=== PATIENT | male | born 1930 | race American Indian/Alaskan Native ===

== ENCOUNTER 2016-06-26 19:16 | Inpatient (IN) | payer OTHER, MEDICAID ==
[~2016-06-26] VITALS: Ht 167.6 cm; Wt 74.8 kg
[2016-06-26 19:25] VITALS: BP 83/48
[2016-06-26] MEDS ORDERED: NACL 0.9% 1,000 ML IV SCH (19:27)
[2016-06-26 19:49] LABS: HEMATOCRIT 39.6 % (36-52); HEMOGLOBIN 12.6 g/dL (12.0-18.0); MEAN CORPUSCULAR HEMOGLOBIN 28 pg (27-31); MEAN CORPUSCULAR HGB CONC 32 g/dL (33-37); MEAN CORPUSCULAR VOLUME 88 fL (80-94); PLATELET COUNT (AUTO) 248 K/uL (140-450); RED BLOOD CELL COUNT(AUTO) 4.49 MIL/uL (4.20-6.10); RED CELL DISTRIBUTION WIDTH 16.1 % (11.6-13.7); WHITE BLOOD COUNT (AUTO) 15.7 K/uL (4.8-10.8)
[2016-06-26 20:01] LABS: ALANINE AMINOTRANSFERASE 75 U/L (12-78); ALBUMIN 2.5 g/dL (3.4-5.0); ALKALINE PHOSPHATASE 85 U/L (46-116); ASPARTATE AMINOTRANSFERASE 103 U/L (15-37); CALCIUM 8.1 mg/dL (8.5-10.1); CARBON DIOXIDE 24.6 mmol/L (21-32); CHLORIDE 100 mmol/L (98-107); CREATININE 1.5 mg/dL (0.6-1.3); GLUCOSE 111 mg/dL (74-106); POTASSIUM 4.6 mmol/L (3.5-5.1); SODIUM SERUM 138 mmol/L (136-145); TOTAL BILIRUBIN 0.4 mg/dL (0.0-1.0); TOTAL PROTEIN, SERUM 6.8 g/dL (6.4-8.2); UREA NITROGEN, BLOOD 38 mg/dL (7-18)
[2016-06-26 20:09] LABS: INR 1.1 (0.8-1.2); PARTIAL THROMBOPLASTIN TIME 27.1 secs (22-35.6); PROTHROMBIN TIME 10.4 secs (10.8-13.4)
[2016-06-26 20:12] LABS: BAND % (MANUAL) 42 % (0-8); LYMPHOCYTES % (MANUAL) 2 % (20-46); MONOCYTES % (MANUAL) 10 % (5-12); NEUTROPHILS % (MANUAL) 45 (43-65); PLATELET ESTIMATE ADEQUATE
[2016-06-26] MEDS ORDERED: AZITHROMYCIN 500 MG in DEXTROSE 5% 250 ML IV ONE (20:20)
[2016-06-26] MEDS ORDERED: cefTRIAXone 1,000 MG VIAL ONE ×2 (20:35→20:38)
[2016-06-26] MEDS ORDERED: AZITHROMYCIN 500 MG INJ VIAL IV ONE (20:39)
[2016-06-26 20:45] LABS: APPEARANCE,URINE CLEAR (CLEAR); BLOOD, URINE 2+ (NEGATIVE); COLOR,URINE YELLOW (YELLOW); LEUKOCYTE ESTERASE ,URINE NEGATIVE (NEGATIVE); NITRITE, URINE NEGATIVE (NEGATIVE); PH,URINE 5.5 (5.0-9.0); PROTEIN,URINE 1+ (NEGATIVE); UGLUCOSE NEGATIVE (NEGATIVE)
[2016-06-26 20:46] LABS: BILIRUBIN,URINE NEGATIVE (NEGATIVE)
[2016-06-26 21:00] LABS: BACTERIA,URINE FEW /HPF (None Seen); MUCUS,URINE 1+ /LPF (None Seen); WBC,URINE 0-3 /HPF (0-5)
[2016-06-26] MEDS ORDERED: NACL 0.9% 1,000 ML IV ONE (21:00)
[2016-06-26 21:01] LABS: URINE AMORPHOUS URATE 2+ /HPF (None Seen)
[2016-06-26] MEDS ORDERED: DEPSPR125 PO (21:08)
[2016-06-26] MEDS ORDERED: FLUO0.0124 TP (21:08)
[2016-06-26] MEDS ORDERED: VITD1000 PO (21:08)
[2016-06-26] MEDS ORDERED: [UNRECOGNIZED DRUG - CODE] PO (21:08)
[2016-06-26] MEDS ORDERED: ACET-2619 PO (21:08)
[2016-06-26] MEDS ORDERED: DOCU100T31 PO (21:08)
[2016-06-26] MEDS ORDERED: ATI.5 PO (21:08)
[2016-06-26] MEDS ORDERED: HEPARIN PER PHARMACY MC PRN (21:25)
[2016-06-26] MEDS ORDERED: ACETAMINOPHEN 325 MG TAB PO PRN (21:25)
[2016-06-26] MEDS ORDERED: HYDROcodone/APAP 5/325 MG 1 TAB TAB PO PRN (21:25)
[2016-06-26] MEDS ORDERED: hePARIN / DEXT 5% PREMIX 250 ML IV SCH (21:25)
[2016-06-26] MEDS ORDERED: ALBUTEROL 0.083% 2.5 MG/3 ML NEBU IH PRN (21:25)
[2016-06-26] MEDS ORDERED: MORPHINE SULFATE 2 MG/ML SYR IVP PRN (21:25)
[2016-06-26] MEDS ORDERED: LORazepam 2 MG/ML VIAL IVP PRN (21:25)
[2016-06-26] MEDS ORDERED: LACT10SO1 PO (21:27)
[2016-06-26] MEDS ORDERED: ATORVASTATIN 20 MG TAB PO SCH (21:35)
[2016-06-26] MEDS ORDERED: ASPIRIN 81 MG TAB.CHEW PO SCH (21:35)
[2016-06-26] MEDS ORDERED: NACL 0.9% 250 ML IV ONE (21:35)
[2016-06-26] MEDS ORDERED: OMEP20EC6 PO (21:38)
[2016-06-26] MEDS ORDERED: KEN.1O TP (21:38)
[2016-06-26] MEDS ORDERED: CARB1TAB10 PO (21:38)
[2016-06-26] MEDS ORDERED: [UNRECOGNIZED DRUG - CODE] PO (21:38)
[2016-06-26] MEDS ORDERED: ONDA4TAB PO (21:38)
[2016-06-26] MEDS ORDERED: VAS2.5 PO (21:38)
[2016-06-26] MEDS ORDERED: CALC-1380 PO (21:38)
[2016-06-26] MEDS ORDERED: NAPR500T1 PO (21:38)
[2016-06-26] MEDS ORDERED: ACET-2869 PO (21:38)
[2016-06-26] MEDS ORDERED: SLIDE SUBQ (21:38)
[2016-06-26] MEDS ORDERED: MEMA10TA PO (21:38)
[2016-06-26 22:04] LABS: BLOOD GAS HCO3 19.5 mmol/L; BLOOD GAS PCO2 35.1 mmHg (20-50); BLOOD GAS PH 7.363 (7.35-7.45); BLOOD GAS PO2 58.8 mmHg
[2016-06-26 22:05] LABS: BLOOD GAS BASE EXCESS -5.2 mmol/L (-2.0-2.0); BLOOD GAS O2 SAT% 88.6 % (92.0-98.5)
[2016-06-26 22:45] VITALS: BP 118/65
[2016-06-26] MEDS: NACL 0.9% 1,000 ML IV SCH (23:08)
[2016-06-26] MEDS: hePARIN / DEXT 5% PREMIX 250 ML IV SCH (23:23)
[2016-06-27] VITALS: BP 99/55
[2016-06-27 04:00] VITALS: BP 102/55
[2016-06-27] MEDS ORDERED: PIPERACILLIN/TAZOBACTAM 3.375 GM in DEXTROSE 5% 50 ML IV SCH (05:00)
[2016-06-27 06:08] LABS: HEMATOCRIT 34.3 % (36-52); HEMOGLOBIN 11.2 g/dL (12.0-18.0); MEAN CORPUSCULAR HEMOGLOBIN 29 pg (27-31); MEAN CORPUSCULAR HGB CONC 33 g/dL (33-37); MEAN CORPUSCULAR VOLUME 90 fL (80-94); PLATELET COUNT (AUTO) 218 K/uL (140-450); RED BLOOD CELL COUNT(AUTO) 3.81 MIL/uL (4.20-6.10)
[2016-06-27 06:41] LABS: ANION GAP 12.2 (8-16); CALCIUM 7.3 mg/dL (8.5-10.1); CARBON DIOXIDE 27.2 mmol/L (21-32); CHLORIDE 105 mmol/L (98-107); CREATININE 1.2 mg/dL (0.6-1.3); GLUCOSE 89 mg/dL (74-106); POTASSIUM 4.4 mmol/L (3.5-5.1); SODIUM SERUM 140 mmol/L (136-145); UREA NITROGEN, BLOOD 30 mg/dL (7-18)
[2016-06-27 07:03] LABS: PHOSPHORUS 3.3 mg/dL (2.5-4.9)
[2016-06-27] MEDS ORDERED: HEPARIN PER PHARMACY MC PRN (07:15)
[2016-06-27] MEDS ORDERED: hePARIN / DEXT 5% PREMIX 250 ML IV SCH (07:15)
[2016-06-27 07:21] LABS: BAND % (MANUAL) 40 % (0-8); LYMPHOCYTES % (MANUAL) 9 % (20-46); MONOCYTES % (MANUAL) 5 % (5-12); NEUTROPHILS % (MANUAL) 46 (43-65); PLATELET ESTIMATE ADEQUATE
[2016-06-27] MEDS: BUDESONIDE 0.5 MG/2 ML NEBU INH SCH ×2 (07:30→19:17)
[2016-06-27 08:00] VITALS: BP 132/63
[2016-06-27] MEDS ORDERED: LISINOPRIL 5 MG TAB PO SCH (09:00)
[2016-06-27] MEDS: LACTULOSE 20 GM/30 ML UDC PO SCH (09:58)
[2016-06-27] MEDS: DIVALPROEX SPRINKLES 125 MG CAPDR PO SCH ×2 (09:59→21:07)
[2016-06-27] MEDS: METOPROLOL 25 MG TAB PO SCH ×2 (09:59→21:00)
[2016-06-27] MEDS: CHOLECALCIFEROL 1,000 IU TAB PO SCH (09:59)
[2016-06-27] MEDS ORDERED: ATORVASTATIN 20 MG TAB PO SCH (10:30)
[2016-06-27] MEDS: ALBUTEROL SULFATE/IPRATROPIU 3 ML SOL IH SCH ×4 (11:00→22:30)
[2016-06-27 12:00] VITALS: BP 111/60
[2016-06-27] MEDS ORDERED: NAPROXEN 500 MG TAB PO PRN (14:50)
[2016-06-27] MEDS ORDERED: INSULIN LISPRO SLIDING SCALE 100 UNITS/ML VIAL SUBQ PRN (15:40)
[2016-06-27] MEDS ORDERED: DEXTROSE 50% 50 ML SYR IVP PRN (15:40)
[2016-06-27 16:00] VITALS: BP 101/58
[2016-06-27] MEDS: BLOOD GLUCOSE MONITORING 1 DEV DEV FS SCH ×2 (16:30→21:00)
[2016-06-27] MEDS: NACL 0.9% 1,000 ML IV SCH (17:26)
[2016-06-27] MEDS: CALCIUM CARB/VIT-D 500 MG/200 IU 1 TAB PO SCH (21:07)
[2016-06-27] MEDS: MEMANTINE 10 MG TAB PO SCH (21:07)
[2016-06-27 21:08] VITALS: BP 99/52
[2016-06-27] MEDS: ONDANSETRON 4 MG/2 ML VIAL IVP PRN (22:33)
[2016-06-27] MEDS: PIPER/TAZO 2.25GM/D5W PREMIX 50 ML IV SCH (23:20)
[2016-06-28 00:41] VITALS: BP 96/50
[2016-06-28] MEDS: hePARIN / DEXT 5% PREMIX 250 ML IV SCH (02:20)
[2016-06-28] MEDS: ALBUTEROL SULFATE/IPRATROPIU 3 ML SOL IH SCH ×6 (03:56→23:25)
[2016-06-28 04:26] VITALS: BP 98/67
[2016-06-28] MEDS: PIPER/TAZO 2.25GM/D5W PREMIX 50 ML IV SCH ×3 (05:00→21:44)
[2016-06-28] MEDS: BLOOD GLUCOSE MONITORING 1 DEV DEV FS SCH ×4 (06:07→21:42)
[2016-06-28 06:49] LABS: BASOPHILS # (AUTO) 0.1 K/uL (0.00-0.22); BASOPHILS % (AUTO) 0.7 % (0.0-2.0); EOSINOPHILS # (AUTO) 0.1 K/uL (0-0.4); EOSINOPHILS % (AUTO) 0.9 % (0.0-4.0); HEMATOCRIT 33.9 % (36-52); HEMOGLOBIN 10.6 g/dL (12.0-18.0); LYMPHOCYTES # (AUTO) 1.2 K/uL (2.0-11.5); LYMPHOCYTES % (AUTO) 12.2 % (20.5-51.1); MEAN CORPUSCULAR HEMOGLOBIN 28 pg (27-31); MEAN CORPUSCULAR HGB CONC 31 g/dL (33-37); MEAN CORPUSCULAR VOLUME 91 fL (80-94); MONOCYTES # (AUTO) 0.7 K/uL (0.8-1.0); MONOCYTES % (AUTO) 7.1 % (1.7-9.3); NEUTROPHILS # (AUTO) 7.4 K/uL (1.8-7.7); NEUTROPHILS % (AUTO) 79.1 % (42.2-75.2); PLATELET COUNT (AUTO) 239 K/uL (140-450); RED BLOOD CELL COUNT(AUTO) 3.73 MIL/uL (4.20-6.10); RED CELL DISTRIBUTION WIDTH 16.4 % (11.6-13.7); WHITE BLOOD COUNT (AUTO) 9.5 K/uL (4.8-10.8)
[2016-06-28 07:28] LABS: ANION GAP 10.1 (8-16); CALCIUM 7.7 mg/dL (8.5-10.1); CHLORIDE 106 mmol/L (98-107); GLUCOSE 102 mg/dL (74-106); POTASSIUM 4.1 mmol/L (3.5-5.1); SODIUM SERUM 139 mmol/L (136-145); UREA NITROGEN, BLOOD 15 mg/dL (7-18)
[2016-06-28] MEDS: BUDESONIDE 0.5 MG/2 ML NEBU INH SCH ×2 (07:37→19:45)
[2016-06-28 08:00] VITALS: BP 132/69
[2016-06-28] MEDS: METOPROLOL 25 MG TAB PO SCH ×2 (08:19→21:45)
[2016-06-28] MEDS: ATORVASTATIN 20 MG TAB PO SCH (08:19)
[2016-06-28] MEDS: LACTULOSE 20 GM/30 ML UDC PO SCH (08:19)
[2016-06-28] MEDS: DIVALPROEX SPRINKLES 125 MG CAPDR PO SCH ×2 (08:19→21:45)
[2016-06-28] MEDS: ENALAPRIL 2.5 MG TAB PO SCH (08:20)
[2016-06-28] MEDS: CALCIUM CARB/VIT-D 500 MG/200 IU 1 TAB PO SCH ×2 (08:20→21:46)
[2016-06-28] MEDS: CHOLECALCIFEROL 1,000 IU TAB PO SCH (08:20)
[2016-06-28] MEDS: MEMANTINE 10 MG TAB PO SCH ×2 (08:20→21:46)
[2016-06-28] MEDS: CARBIDOPA/LEVODOPA 25/250 MG 1 TAB PO SCH (08:20)
[2016-06-28 12:00] VITALS: BP 116/61
[2016-06-28] MEDS: NACL 0.9% 1,000 ML IV SCH ×2 (13:21→18:07)
[2016-06-28 16:00] VITALS: BP 126/69
[2016-06-28] MEDS: CHLORHEXADINE GLUC 2% CLOTH TP SCH (17:32)
[2016-06-28 20:00] VITALS: BP 121/61
[2016-06-29] VITALS: BP 106/54
[2016-06-29] MEDS: ALBUTEROL SULFATE/IPRATROPIU 3 ML SOL IH SCH ×6 (03:18→23:38)
[2016-06-29] MEDS: guaiFENesin 20 MG/ML UDC PO PRN ×4 (03:40→23:21)
[2016-06-29 04:00] VITALS: BP 125/80
[2016-06-29] MEDS: PIPER/TAZO 2.25GM/D5W PREMIX 50 ML IV SCH ×3 (04:40→20:59)
[2016-06-29 05:31] LABS: BASOPHILS # (AUTO) 0.1 K/uL (0.00-0.22); BASOPHILS % (AUTO) 0.7 % (0.0-2.0); EOSINOPHILS # (AUTO) 0.1 K/uL (0-0.4); EOSINOPHILS % (AUTO) 1.5 % (0.0-4.0); HEMOGLOBIN 10.8 g/dL (12.0-18.0); LYMPHOCYTES # (AUTO) 0.8 K/uL (2.0-11.5); LYMPHOCYTES % (AUTO) 8.1 % (20.5-51.1); MEAN CORPUSCULAR HEMOGLOBIN 29 pg (27-31); MEAN CORPUSCULAR HGB CONC 32 g/dL (33-37); MEAN CORPUSCULAR VOLUME 90 fL (80-94); MONOCYTES # (AUTO) 0.5 K/uL (0.8-1.0); MONOCYTES % (AUTO) 5.1 % (1.7-9.3); NEUTROPHILS # (AUTO) 7.8 K/uL (1.8-7.7); NEUTROPHILS % (AUTO) 84.6 % (42.2-75.2); PLATELET COUNT (AUTO) 286 K/uL (140-450); RED BLOOD CELL COUNT(AUTO) 3.78 MIL/uL (4.20-6.10); RED CELL DISTRIBUTION WIDTH 16.6 % (11.6-13.7)
[2016-06-29 06:03] LABS: CARBON DIOXIDE 27.9 mmol/L (21-32); CHLORIDE 106 mmol/L (98-107); CREATININE 0.9 mg/dL (0.6-1.3); GLUCOSE 88 mg/dL (74-106); MAGNESIUM 1.8 mg/dL (1.8-2.4); PHOSPHORUS 2.9 mg/dL (2.5-4.9); POTASSIUM 3.9 mmol/L (3.5-5.1); SODIUM SERUM 142 mmol/L (136-145); UREA NITROGEN, BLOOD 9 mg/dL (7-18)
[2016-06-29] MEDS: BLOOD GLUCOSE MONITORING 1 DEV DEV FS SCH ×4 (06:33→20:59)
[2016-06-29] MEDS: BUDESONIDE 0.5 MG/2 ML NEBU INH SCH ×2 (07:04→19:40)
[2016-06-29 07:23] LABS: WHITE BLOOD COUNT (AUTO) 9.3 K/uL (4.8-10.8)
[2016-06-29 08:00] VITALS: BP 118/64
[2016-06-29] MEDS: ENALAPRIL 2.5 MG TAB PO SCH (09:00)
[2016-06-29] MEDS: LACTULOSE 20 GM/30 ML UDC PO SCH (09:53)
[2016-06-29] MEDS: ATORVASTATIN 20 MG TAB PO SCH (09:53)
[2016-06-29] MEDS: CALCIUM CARB/VIT-D 500 MG/200 IU 1 TAB PO SCH ×2 (09:54→20:59)
[2016-06-29] MEDS: METOPROLOL 25 MG TAB PO SCH ×2 (09:54→21:00)
[2016-06-29] MEDS: DIVALPROEX SPRINKLES 125 MG CAPDR PO SCH ×2 (09:54→21:00)
[2016-06-29] MEDS: MEMANTINE 10 MG TAB PO SCH ×2 (09:54→20:59)
[2016-06-29] MEDS: CHOLECALCIFEROL 1,000 IU TAB PO SCH (09:54)
[2016-06-29] MEDS: CARBIDOPA/LEVODOPA 25/250 MG 1 TAB PO SCH (09:54)
[2016-06-29] MEDS: MUPIROCIN 2% OINT 22 GM TUBE TP SCH (09:55)
[2016-06-29 16:00] VITALS: BP 115/71
[2016-06-29] MEDS: CHLORHEXADINE GLUC 2% CLOTH TP SCH (17:06)
[2016-06-30] VITALS: BP 117/65
[2016-06-30] MEDS: NACL 0.9% 1,000 ML IV SCH (00:29)
[2016-06-30] MEDS: ALBUTEROL SULFATE/IPRATROPIU 3 ML SOL IH SCH ×6 (03:35→23:57)
[2016-06-30] MEDS: PIPER/TAZO 2.25GM/D5W PREMIX 50 ML IV SCH ×3 (04:30→20:08)
[2016-06-30 06:33] LABS: BASOPHILS % (AUTO) 0.3 % (0.0-2.0); EOSINOPHILS # (AUTO) 0.2 K/uL (0-0.4); EOSINOPHILS % (AUTO) 2.5 % (0.0-4.0); HEMATOCRIT 34.1 % (36-52); LYMPHOCYTES # (AUTO) 0.9 K/uL (2.0-11.5); LYMPHOCYTES % (AUTO) 9.3 % (20.5-51.1); MEAN CORPUSCULAR HEMOGLOBIN 29 pg (27-31); MEAN CORPUSCULAR HGB CONC 32 g/dL (33-37); MEAN CORPUSCULAR VOLUME 91 fL (80-94); MONOCYTES # (AUTO) 0.7 K/uL (0.8-1.0); MONOCYTES % (AUTO) 7.3 % (1.7-9.3); NEUTROPHILS # (AUTO) 7.7 K/uL (1.8-7.7); NEUTROPHILS % (AUTO) 80.6 % (42.2-75.2); PLATELET COUNT (AUTO) 304 K/uL (140-450); RED BLOOD CELL COUNT(AUTO) 3.76 MIL/uL (4.20-6.10); RED CELL DISTRIBUTION WIDTH 16.3 % (11.6-13.7); WHITE BLOOD COUNT (AUTO) 9.5 K/uL (4.8-10.8)
[2016-06-30 06:45] LABS: ANION GAP 8.8 (8-16); CARBON DIOXIDE 31.3 mmol/L (21-32); CHLORIDE 106 mmol/L (98-107); CREATININE 0.9 mg/dL (0.6-1.3); GLUCOSE 84 mg/dL (74-106); POTASSIUM 4.1 mmol/L (3.5-5.1); SODIUM SERUM 142 mmol/L (136-145); UREA NITROGEN, BLOOD 5 mg/dL (7-18)
[2016-06-30 06:51] LABS: MAGNESIUM 1.6 mg/dL (1.8-2.4); PHOSPHORUS 3.1 mg/dL (2.5-4.9)
[2016-06-30] MEDS: BUDESONIDE 0.5 MG/2 ML NEBU INH SCH ×2 (07:08→19:53)
[2016-06-30] MEDS: BLOOD GLUCOSE MONITORING 1 DEV DEV FS SCH ×4 (07:49→21:59)
[2016-06-30 08:00] VITALS: BP 123/59
[2016-06-30] MEDS ORDERED: MAG SULF 2000 MG/WATER PREMIX 50 ML IV SCH (08:30)
[2016-06-30] MEDS: LACTULOSE 20 GM/30 ML UDC PO SCH (08:57)
[2016-06-30] MEDS: DIVALPROEX SPRINKLES 125 MG CAPDR PO SCH ×2 (08:58→20:08)
[2016-06-30] MEDS: METOPROLOL 25 MG TAB PO SCH ×2 (08:58→20:08)
[2016-06-30] MEDS: CALCIUM CARB/VIT-D 500 MG/200 IU 1 TAB PO SCH ×2 (08:58→20:08)
[2016-06-30] MEDS: ENALAPRIL 2.5 MG TAB PO SCH (08:58)
[2016-06-30] MEDS: CHOLECALCIFEROL 1,000 IU TAB PO SCH (08:58)
[2016-06-30] MEDS: ATORVASTATIN 20 MG TAB PO SCH (08:59)
[2016-06-30] MEDS: MUPIROCIN 2% OINT 22 GM TUBE TP SCH (08:59)
[2016-06-30] MEDS: MEMANTINE 10 MG TAB PO SCH ×2 (08:59→20:09)
[2016-06-30] MEDS: CARBIDOPA/LEVODOPA 25/250 MG 1 TAB PO SCH (08:59)
[2016-06-30] MEDS: ONDANSETRON 4 MG/2 ML VIAL IVP PRN ×2 (12:44→20:09)
[2016-06-30 16:00] VITALS: BP 121/62
[2016-06-30] MEDS: CHLORHEXADINE GLUC 2% CLOTH TP SCH (16:23)
[2016-07-01] VITALS: BP 124/70
[2016-07-01] MEDS: NACL 0.9% 1,000 ML IV SCH (01:21)
[2016-07-01] MEDS: ALBUTEROL SULFATE/IPRATROPIU 3 ML SOL IH SCH ×4 (03:43→15:00)
[2016-07-01] MEDS: PIPER/TAZO 2.25GM/D5W PREMIX 50 ML IV SCH ×2 (04:07→13:28)
[2016-07-01] MEDS: BLOOD GLUCOSE MONITORING 1 DEV DEV FS SCH ×2 (06:22→12:20)
[2016-07-01 06:23] LABS: BASOPHILS # (AUTO) 0.1 K/uL (0.00-0.22); BASOPHILS % (AUTO) 0.6 % (0.0-2.0); EOSINOPHILS # (AUTO) 0.3 K/uL (0-0.4); EOSINOPHILS % (AUTO) 2.8 % (0.0-4.0); HEMATOCRIT 31.7 % (36-52); HEMOGLOBIN 10.2 g/dL (12.0-18.0); LYMPHOCYTES # (AUTO) 0.9 K/uL (2.0-11.5); LYMPHOCYTES % (AUTO) 8.6 % (20.5-51.1); MEAN CORPUSCULAR HEMOGLOBIN 29 pg (27-31); MEAN CORPUSCULAR HGB CONC 32 g/dL (33-37); MEAN CORPUSCULAR VOLUME 90 fL (80-94); MONOCYTES # (AUTO) 0.8 K/uL (0.8-1.0); MONOCYTES % (AUTO) 8.1 % (1.7-9.3); NEUTROPHILS % (AUTO) 79.9 % (42.2-75.2); PLATELET COUNT (AUTO) 317 K/uL (140-450); RED BLOOD CELL COUNT(AUTO) 3.51 MIL/uL (4.20-6.10); RED CELL DISTRIBUTION WIDTH 15.9 % (11.6-13.7)
[2016-07-01 06:33] LABS: ANION GAP 11.1 (8-16); CALCIUM 7.9 mg/dL (8.5-10.1); CARBON DIOXIDE 29.8 mmol/L (21-32); CHLORIDE 102 mmol/L (98-107); CREATININE 0.8 mg/dL (0.6-1.3); GLUCOSE 83 mg/dL (74-106); POTASSIUM 3.9 mmol/L (3.5-5.1); SODIUM SERUM 139 mmol/L (136-145); UREA NITROGEN, BLOOD 6 mg/dL (7-18)
[2016-07-01 06:35] LABS: MAGNESIUM 1.7 mg/dL (1.8-2.4)
[2016-07-01] MEDS: BUDESONIDE 0.5 MG/2 ML NEBU INH SCH (07:02)
[2016-07-01 07:34] LABS: WHITE BLOOD COUNT (AUTO) 10.1 K/uL (4.8-10.8)
[2016-07-01 08:00] VITALS: BP 132/64
[2016-07-01] MEDS: ENALAPRIL 2.5 MG TAB PO SCH (08:34)
[2016-07-01] MEDS: MUPIROCIN 2% OINT 22 GM TUBE TP SCH (08:34)
[2016-07-01] MEDS: LACTULOSE 20 GM/30 ML UDC PO SCH (08:34)
[2016-07-01] MEDS: METOPROLOL 25 MG TAB PO SCH (08:35)
[2016-07-01] MEDS: CALCIUM CARB/VIT-D 500 MG/200 IU 1 TAB PO SCH (08:35)
[2016-07-01] MEDS: CHOLECALCIFEROL 1,000 IU TAB PO SCH (08:35)
[2016-07-01] MEDS: ATORVASTATIN 20 MG TAB PO SCH (08:35)
[2016-07-01] MEDS: MEMANTINE 10 MG TAB PO SCH (08:35)
[2016-07-01] MEDS: CARBIDOPA/LEVODOPA 25/250 MG 1 TAB PO SCH (08:35)
[2016-07-01] MEDS: DIVALPROEX SPRINKLES 125 MG CAPDR PO SCH (08:36)
[2016-07-01] MEDS ORDERED: MAG SULF 2000 MG/WATER PREMIX 50 ML IV SCH (09:00)
[2016-07-01] MEDS ORDERED: LEVO750T2 PO (13:29)
[2016-07-01] MEDS ORDERED: LACT1.4C PO (13:29)
[2016-07-01] MEDS ORDERED: CLIN300C2 PO (13:29)
[2016-07-01] MEDS ORDERED: SIMV20TA1 PO (13:29)
[2016-07-01 15:20] VITALS: BP 126/66
== END 2016-07-01 15:20 | DRG 871 ==
LOC: MED 19:16 → MIC 21:21 → MTU 06-27 07:45
PROVIDERS: ADMIT Family Medicine; ATTEND Family Medicine
DX: A41.9 Sepsis, unspecified organism (principal); J69.0 Pneumonitis due to inhalation of food and vomit; N17.0 Acute kidney failure with tubular necrosis; E43 Unspecified severe protein-calorie malnutrition; I21.3 ST elevation (STEMI) myocardial infarction of unspecified site; J96.01 Acute respiratory failure with hypoxia; G93.41 Metabolic encephalopathy; D68.59 Other primary thrombophilia; I42.0 Dilated cardiomyopathy; Z66 Do not resuscitate; E11.65 Type 2 diabetes mellitus with hyperglycemia; F03.90 Unspecified dementia, unspecified severity, without behavioral disturbance, psychotic disturbance, mood disturbance, and anxiety; G20 Parkinson's disease; G40.909 Epilepsy, unspecified, not intractable, without status epilepticus; E83.42 Hypomagnesemia; K76.9 Liver disease, unspecified; K21.9 Gastro-esophageal reflux disease without esophagitis; R74.0 Nonspecific elevation of levels of transaminase and lactic acid dehydrogenase [LDH]; I11.9 Hypertensive heart disease without heart failure; E11.51 Type 2 diabetes mellitus with diabetic peripheral angiopathy without gangrene; M62.50 Muscle wasting and atrophy, not elsewhere classified, unspecified site; Z90.49 Acquired absence of other specified parts of digestive tract; Z71.3 Dietary counseling and surveillance; Z68.26 Body mass index [BMI] 26.0-26.9, adult; Z79.899 Other long term (current) drug therapy
CPT/HCPCS: 36415; 36600; 71010; 73020; 76700; 80048; 80053; 81001; 82550; 82553; 82803; 82948; 83036; 83605; 83735; 83874; 83880; 84100; 84484; 85025; 85610; 85730; 87040; 87081; 87086; 92610; 93005; 93925; 93970; 94640; 96361; 96365; 97110; 97140; 99291; C1758; J0456; J0696; J1644; J1815; J2270; J2405; J2543; J3475; J7030; J7620; J7626; Q0092